=== PATIENT | male | born 1990 | race Two or more races ===

== ENCOUNTER 2017-01-16 07:45 | Emergency (ER) | payer OTHER | END 2017-01-16 08:28 | disposition home or self-care (01) | LOC: CED 07:45 → CFTX 07:45 | DX: H65.93 Unspecified nonsuppurative otitis media, bilateral (principal); J32.9 Chronic sinusitis, unspecified; F17.210 Nicotine dependence, cigarettes, uncomplicated | CPT/HCPCS: 87651; 99283 ==

== ENCOUNTER 2017-04-11 05:07 | Emergency (ER) | payer OTHER ==
[~2017-04-11] VITALS: Ht 182.9 cm; Wt 79.4 kg
--- NOTE | ~2017-04-11 | EKG ---
PATIENT: LISA CORREA UNIT #: [id number] Ventricular Rate: 70 BPM Atrial Rate: 70 BPM P-R Interval: 150 ms QRS Duration: 92 ms Q-T Interval: 402 ms QTC Calculation(Bezet): 434 ms P [place]: 52 degrees Calculated R [place]: 20 degrees Calculated T [place]: 27 degrees Diagnosis Line: Sinus rhythm with Premature atrial complexes Diagnosis Line: Otherwise normal ECG Diagnosis Line: When compared with ECG of 14-JUN-2016 02:25, Diagnosis Line: Premature atrial complexes are now Present Diagnosis Line: Confirmed by PRINCE KIM MD ([id number]) on 04/11/2017 Diagnosis Line: 7:20:19 PM INTERPRETING MD: JULIO GÓMEZ
--- NOTE | ~2017-04-11 | CR72 ---
[facility] A Service of [facility] & [facility] RADIOLOGY TEXT RESULTS PATIENT: LISA CORREA LOCATION: [facility] : [birth year] UNIT #: [id number] AGE: [address]: Maricarmen Ngo MD SEX: M ORDER DR: [id number] [facility] [address] [facility] [place], [place] [address] [id number] MR#: [id number] Acc #: [id number] NAME: LISA CORREA : 1990 SEX: M STUDY DATE/TIME: 04/11/2017 5:41 UNIT: [facility] ROOM: STUDY DESCRIPTION: CR Chest Single View Portable Attending Physician: Ellie Mcfarlane A.P.R.N. Ordering Physician: Ellie Mcfarlane A.P.R.N. Primary Care Physician: Primary Care Physician No MEDICAL IMAGING REPORT This report is preliminary unless electronic signature is present EXAM Portable chest HISTORY Right side chest pain and shortness of air today. FINDINGS The cardiac size and pulmonary vascularity are normal. There are mild right upper thoracic curve and minimal left lower thoracic curve. No airspace infiltrates or effusions. IMPRESSION No acute findings and no active disease. Dictated by... Juan Antonio Ortega M.D. THIS IS AN ELECTRONICALLY VERIFIED REPORT Juan Antonio Ortega M.D. at 04/11/2017 10:08 PM Daniel TD: 04/11/2017 08:26 JOB #: [id number] MEDICAL IMAGING REPORT Page 1 of 1 COPY
[2017-04-11 05:48] LABS: POC - CKMB <1.0 ng/mL (0.0-7.9); POC - TROPONIN <0.05 ng/mL (<=0.05)
[2017-04-11 05:56] LABS: BASOPHIL# 0.1 X10e3 (0-0.3); BASOPHIL% 0.9 % (0-2.5); EOSINOPHIL# 0.2 X10e3 (0-0.7); EOSINOPHIL% 1.4 % (0.0-7.0); HEMATOCRIT 46.7 % (38.0-50.0); HEMOGLOBIN 15.7 gm/dL (13.0-16.0); MEAN CELL VOLUME 85.6 FL (83-96); MEAN CORPUSCULAR HEMOGLOBIN 28.8 PG (28-34); MEAN CORPUSCULAR HGB CONC 33.7 g/dL (30-36); MEAN PLATELET VOLUME 8.5 FL (6.5-11.5); MONOCYTE# 0.9 X10e3 (0-1.0); MONOCYTE% 7.2 % (3.0-12.0); NEUTROPHIL# 8.3 X10e3 (1.5-7.1); NEUTROPHIL% 66.5 % (40-75); PLATELET COUNT 274 X10e3 (140-420); RED BLOOD COUNT 5.46 X10e (3.90-5.60); RED CELL DISTRIBUTION WIDTH 13.7 % (11.0-15.5); WHITE BLOOD COUNT 12.5 X10e3 (4.0-10.5)
[2017-04-11 05:57] LABS: DIFF IND NO
[2017-04-11 06:00] LABS: PARTIAL THROMBOPLASTIN TIME 29.9 SECONDS (23.5-31.3); PROTHROMBIN TIME (PATIENT) 11.3 SECONDS (10.0-11.7)
[2017-04-11 06:16] LABS: ALBUMIN SERUM 4.6 g/dL (3.5-5.0); BILIRUBIN, DIRECT 0.1 mg/dL (0.0-0.2); BILIRUBIN,INDIRECT 0.1 mg/dL (0.0-0.9); BILIRUBIN,TOTAL 0.2 mg/dL (0.2-2.0); BUN/CREATININE RATIO 16.25; CALCIUM SERUM 9.5 mg/dL (8.4-10.2); CREATININE SERUM 0.8 mg/dL (0.6-1.4); GLOM FILT RATE Estimated 123.3 mL/min (>60); POTASSIUM 3.7 mmol/L (3.5-5.1); PROTEIN TOTAL SERUM 7.4 g/dL (6.0-8.3)
[2017-04-11 07:46] LABS: POC - CKMB <1.0 ng/mL (0.0-7.9); POC - TROPONIN <0.05 ng/mL (<=0.05)
== END 2017-04-11 09:05 | disposition home or self-care (01) ==
LOC: CED 05:07
PROVIDERS: Nurse Practitioner
DX: R07.89 Other chest pain (principal); F17.210 Nicotine dependence, cigarettes, uncomplicated
CPT/HCPCS: 36415; 71010; 80048; 80076; 82553; 84484; 85025; 85610; 85730; 93005; 99285